=== PATIENT | male | born 1955 | race Caucasian/White ===

== ENCOUNTER 2018-11-25 05:47 | Day surgery (SDC) | payer MEDICARE, BC ==
[2018-11-25] MEDS ORDERED: CEFAZOLIN 2 GM/50 ML (PMX) 50 ML IVPB (06:30)
[2018-11-25] MEDS: hydrALAzine 20 MG INJ IV ×2 (07:05→07:42)
[2018-11-25] MEDS: LACTATED RINGER'S 1,000 ML IV (07:06)
[2018-11-25] MEDS ORDERED: OXYCODONE/ACETAMINOPHEN (5/325) TAB PO ×2 (07:30)
[2018-11-25] MEDS ORDERED: TRIMETHOBENZAMIDE 100 MG/ML VIAL IM (07:30)
[2018-11-25] MEDS ORDERED: FENTAnyl 50 MCG/ML VIAL IV ×3 (07:30)
[2018-11-25] MEDS ORDERED: IPRATROPIUM (NEB) 0.5 MG/2.5 ML AMP HHN (07:30)
[2018-11-25] MEDS ORDERED: ALBUTEROL 0.083% (NEB) 2.5 MG/3 ML AMP HHN (07:30)
[2018-11-25] MEDS ORDERED: EPHEDrine 25 MG/5 ML SYG IV (07:30)
[2018-11-25] MEDS ORDERED: LABETALOL HCL 20MG INJ IV (07:30)
[2018-11-25] MEDS ORDERED: DIPHENHYDRAMINE 50 MG INJ IV (07:30)
[2018-11-25] MEDS ORDERED: MEPERIDINE 25 MG INJ IV (07:30)
[2018-11-25] MEDS ORDERED: MIDAZOLAM 1 MG/ML 2 ML INJ IV (07:30)
[2018-11-25] MEDS ORDERED: HYDROmorphONE 1 MG/5 ML IV SYRINGE IV ×3 (07:30)
[2018-11-25] MEDS ORDERED: hydrALAzine 20 MG INJ IV (07:30)
[2018-11-25] MEDS ORDERED: ONDANSETRON 4 MG INJ IV (07:30)
[2018-11-25] MEDS ORDERED: LIDOCAINE 1% (MPF) 30 ML INJ (07:45)
[2018-11-25] MEDS ORDERED: CEFAZOLIN 1 GM INJ (07:59)
[2018-11-25] MEDS ORDERED: FENTAnyl 50 MCG/ML VIAL ×2 (07:59→08:43)
[2018-11-25] MEDS ORDERED: ROCURONIUM 50 MG INJ (07:59)
[2018-11-25] MEDS ORDERED: NEOSTIGMINE 3 MG/3 ML SYRINGE (07:59)
[2018-11-25] MEDS ORDERED: ONDANSETRON 4 MG INJ (07:59)
[2018-11-25] MEDS ORDERED: DEXAMETHASONE 4 MG/ML 5 ML INJ (07:59)
[2018-11-25] MEDS ORDERED: MIDAZOLAM 1 MG/ML 2 ML INJ (07:59)
[2018-11-25] MEDS ORDERED: GLYCOPYRROLATE 0.4 MG INJ (07:59)
[2018-11-25] MEDS ORDERED: PROPOFOL 20 ML (07:59)
[2018-11-25] MEDS: BACITRACIN/POLYMYXIN 28.35 GM OINT TOP (08:32)
[2018-11-25] MEDS: BUPIVACAINE 0.25% (MPF) 30 ML INJ (08:33)
[2018-11-25] MEDS ORDERED: LABETALOL HCL 20MG INJ (08:51)
== END 2018-11-25 11:05 | disposition home or self-care (01) ==
LOC: SDS 05:47
DX: M1A.0411 Idiopathic chronic gout, right hand, with tophus (tophi) (principal); I10 Essential (primary) hypertension
CPT/HCPCS: 26160; 88307